=== PATIENT | male | born 1945 | race Caucasian/White ===

== ENCOUNTER 2018-04-07 13:36 | Outpatient (CLI) | payer MEDICARE, OTHER ==
--- NOTE | 2018-04-07 14:33 | XRAY Preliminary Report ---
Exam: XR WRIST 4 VIEW LT IMPRESSION: No acute fracture or subluxation. 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 [facility] SITE ID: [id number]
--- NOTE | 2018-04-07 14:33 | XRAY Report ---
EXAM: LEFT WRIST RADIOGRAPHY EXAM DATE: 04/07/2018 02:09 PM. CLINICAL HISTORY: CONTUSION LEFT WRIST. COMPARISON: None. TECHNIQUE: 3 views. FINDINGS: Bones: There is degenerative disease of the base of thumb with joint space narrowing sclerosis and lemus bchondral cystic disease around the first carpal metacarpal joint. Negative for fracture. Joints: No subluxation or dislocation. Soft Tissues: Normal. No soft tissue swelling. IMPRESSION: No acute fracture or subluxation. 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 [facility] Referring Provider Line: [phone] SITE ID: [id number]
== END 2018-04-07 13:37 | disposition home or self-care (01) ==
LOC: DI 13:36
PROVIDERS: ATTEND Family Medicine
DX: S60.212A Contusion of left wrist, initial encounter (principal); M19.032 Primary osteoarthritis, left wrist

== ENCOUNTER 2020-12-07 11:02 | Outpatient (CLI) | payer MEDICARE, OTHER ==
--- NOTE | 2020-12-07 21:41 | SLEEP CARE CONSULTATION ---
Information from patient questionnaire entered by Thania Bell. I have reviewed and concur with the information entered by Thania Bell. This document represents the service I personally performed and the decisions made by me, Jeiska Middleton MD, [facility]. History of Present Illness Service Date and Time: 12/07/2020 1102 Reason for Visit: New patient Chief Complaint: reports: Fatigue, Other (sore throat) Date of Onset: 6 month Usual bedtime: 10 pm Time it takes to fall asleep: 5 min Snores at night: Yes (sometimes) Observed to quit breathing while asleep: No Sleeps alone due to snoring: No Number of times waking at night: 2 Reasons for waking at night: reports: Bathroom Toss, Turn, or Twitch while sleeping: No Recalls having dreams: No Usually gets out of bed at: 6 am Feels refreshed in the morning: Yes Morning headache: No Sleepy or fatigued during the day: Yes Ever fallen asleep while driving: No Takes day naps: Yes Dreams during day naps: No Prior sleep studies: No Additional HPI information: I had the pleasure of seeing Mr. Manning along with his today regarding the possibility of him having a sleep disorder. As you know, he is a 74 year old gentleman who complains of sore throat and acid reflux at night. He has had the sore throat for about 6 months. Prior to quit drinking alcohol, he used to snore loudly and quit breathing in his sleep, according to his . He can recall waking up on the average of 2 times during the night. Most of the time he wakes up because of having to use the bathroom. There is not a lot of tossing and turning in his sleep. No somniloquy (sleep talking) or somnambulism (sleep walking). Generally there is no recollection of dreams. In the morning he usually gets up out of the bed around 6 a.m. feeling refreshed and rested. He usually does not have a morning headache. During the day he complains of feeling sleepy and fatigued. His score on [place] Sleepiness Scale is 10 out of 24. He never has fallen asleep while driving nor has had any accident due to sleepiness. He usually takes naps during the day. He reports having impaired concentration during the day. - Parasomnia Symptoms Ever been unable to move upon waking from sleep: No Ever felt weak in the knees when startled or emotional: No Bothered by creepy, crawly, restless sensations in legs: No Problems with memory or concentration: Yes Subjective Initial [place] Sleepiness Scale score: 10 (in 2020) Past Medical History Past Medical History: reports: Hypertension, Congestive Heart Failure, Diabetes, Arthritis, Coronary Heart Disease, GERD Social History The patient's occupation is a Retired. Patient is and lives in [place]. Have you smoked in the past 12 months: No Cigarettes per day (20/pack): 40 Years of smokin Quit date: 1990 Smoking Pack Years: 40.0 Alcohol use: Yes Alcohol amount and frequency: 2 drinks, not often Caffeine use: Yes Caffeine amount and frequency: 2 cups of coffee Family History Family history of sleep disordered breathing: No Allergies and Home Medications Drug allergies reviewed: Yes Home medication list reviewed: Yes Review of Systems Cardiovascular: reports: high blood pressure, irregular heart rate or pulse, leg or foot swelling Respiratory: reports: shortness of breath, wheeze Gastrointestinal: reports: heartburn, difficulty swallowing, diarrhea Urinary: denies: incontinence, frequency, urgency, impotence, other Neurological: denies: headaches, seizure, head trauma, disorientation, speech dysfunction, gait or balance problems, fainting or unconsciousness, other Psychiatric: denies: Attention Deficit Hyperactivity, anxiety, depression, mood disorder, claustrophobia, other Ear/Nose/Throat: reports: dry mouth/throat, hoarseness, wisdom teeth removed Endocrine: reports: sluggishness Musculoskeletal: reports: joint pain, neck pain, back pain, joint swelling, muscle pain or cramping Immunologic: reports: sneezing, itching Physical Exam Vital signs obtained and entered by: To minimize the risk of COVID-19 exposure, detailed exam was not performed. Height: 5 ft 10 in Weight: 210 lb Body Mass Index: 30.1 BMI Classification: Obese Impression and Plan IMPRESSION: 1. Obstructive Sleep Apnea-Hypopnea Syndrome, as suggested by history of loud and irregular snoring, frequent awakenings during the night, cognitive impairment, and daytime hypersomnolence. Narrow oropharynx and obesity are common predisposing factors for obstructive sleep apnea-hypopnea syndrome. Obstructive sleep apnea-hypopnea can also complicate his underlying cardiac diseases. Obstructive sleep apnea-hypopnea can also cause gastroesophageal reflux at night due to the increased negative pressure in the intrathoracic cavity. I recommend proceeding to polysomnography to confirm the diagnosis and to assess severity. If he has significant sleep disordered breathing, a manual CPAP titration study will also be performed to find the optimal treatment pressure. I informed the patient of what the sleep studies involve and after some discussion, he agreed to proceed. Plan: 1. Schedule polysomnography + manual CPAP titration study and return in 1 to 2 weeks after the study to discuss result and initiate therapy. 2. Avoid long distance driving or when feeling sleepy. 3. Avoid alcohol, sedative and muscle relaxant around bedtime. 4. Attempt to lose weight. Time Spent with Patient (minutes): 15
== END 2020-12-07 11:03 | disposition home or self-care (01) ==
LOC: SC 11:02
PROVIDERS: ATTEND Internal Medicine Pulmonary Disease
DX: G47.10 Hypersomnia, unspecified (principal); R41.89 Other symptoms and signs involving cognitive functions and awareness; G47.8 Other sleep disorders; R06.83 Snoring; E66.9 Obesity, unspecified; Z68.30 Body mass index [BMI] 30.0-30.9, adult
CPT/HCPCS: 99202; G0463; 99212

== ENCOUNTER 2021-05-28 14:00 | Outpatient (CLI) | payer MEDICARE, OTHER ==
--- NOTE | 2021-05-28 15:05 | XRAY Report ---
PROCEDURE: Chest 2 View X-Ray INDICATIONS: CHRONIC COUGH TECHNIQUE: 2 view(s) of the chest. COMPARISON: 09/28/2014. FINDINGS: Surgical changes and devices: Median sternotomy wires and surgical clips are seen.. Lungs and pleura: No pleural effusions or pneumothorax. Lungs are clear. Mediastinum: Mediastinal contours are normal. Heart size is normal. Bones and chest wall: No suspicious bony abnormalities. Soft tissues appear unremarkable. IMPRESSION: No acute cardiopulmonary pathology. Reviewed by: Oscar Beach MD on 05/28/2021 3:04 PM PDT Approved by: Oscar Beach MD on 05/28/2021 3:04 PM PDT Station ID: [id number]
== END 2021-05-28 14:01 | disposition home or self-care (01) ==
LOC: LAB 14:00 → DI 14:01
PROVIDERS: ATTEND Internal Medicine
DX: R05 Cough (principal)

== ENCOUNTER 2023-04-11 10:37 | Outpatient (CLI) | payer MEDICARE, OTHER ==
[2023-04-11] MEDS ORDERED: ALBUTEROL 1 PUFF INH STA (12:55)
== END 2023-04-11 10:38 | disposition home or self-care (01) ==
LOC: RT 10:37
PROVIDERS: ATTEND Internal Medicine
DX: R06.2 Wheezing (principal)
CPT/HCPCS: 94060; 94729

== ENCOUNTER 2023-05-25 07:16 | Day surgery (SDC) | payer MEDICARE, OTHER ==
[2023-05-25] MEDS ORDERED: LACTATED RINGERS 1,000 ML IV ONE ×2 (07:50→09:52)
--- NOTE | 2023-05-25 08:30 | ANESTHESIA ---
Pre-Anesthesia VS, & Labs - Diagnosis anemia - Procedure EGD, colonoscopy Vital Signs: Temp Pulse Resp BP Pulse Ox O2 Flow Rate 35.6 C L 85 20 166/74 H 95 05/25/23 07:20 05/25/23 07:20 05/25/23 07:20 05/25/23 07:20 05/25/23 07:20 Height: 5 ft 10 in Weight (kg): 94.6 kg Body Mass Index: 29.9 BMI Classification: Overweight - NPO >8 hours - Lab Results Current Lab Results: Laboratory Tests 05/25/23 07:44: POC Whole Bld Glucose 202 H Home Medications and Allergies Aspirin EC [Ecotrin] 81 mg PO DAILY 07/01/13 Lisinopril 20 mg PO BID 07/01/13 Omeprazole 40 mg PO DAILY 07/01/13 amLODIPine [Norvasc] 5 mg PO BID 07/01/13 metFORMIN [Glucophage] 1,000 mg PO BID 07/01/13 Rosuvastatin Calcium [Crestor] 20 mg PO DAILY 09/28/14 Clopidogrel [Plavix] 75 mg PO DAILY 03/14/23 Losartan [Cozaar] 50 mg PO DAILY 03/14/23 Metoprolol Succinate 50 mg PO DAILY 03/14/23 glipiZIDE [Glucotrol] 5 mg PO DAILY 03/14/23 Allergies/Adverse Reactions: Allergies Allergy/AdvReac Type Severity Reaction Status Date / Time Penicillins Allergy Unknown unknown Verified 07/01/13 04:55 ticagrelor [From Brilinta] Allergy Respiratory Verified 03/14/23 09:45 Anes History & Medical History - Anesthetic History Anesthesia Complications: reports: No previous complications Family history of Anesthesia Complications: Denies Family history of Malignant Hyperthermia: Denies - Medical History Cardiovascular: reports: Hypertension, High cholesterol, Coronary artery disease (Pacemaker), Angina, [place], Other (METS<4) Pulmonary: reports: Shortness of breath Gastrointestinal: reports: GERD, Ulcers Endocrine/Autoimmune: reports: Type 2 diabetes Skin: reports: None Smoking Status: Unknown if ever smoked Psychosocial: reports: Substance abuse, Alcohol (heavy ETOH) History of Cancer?: No - Surgical History General: reports: Colonoscopy Cardiothoracic: reports: CABG, Coronary stent, Pacemaker, AAA Orthopedic: Exam General: Alert, Oriented x3, Cooperative Dental: WNL Mouth Openin Fingerbreadth Mallampati classification: II Thyromental Distance: less than 4 cm Respiratory: Lungs clear Cardiovascular: Regular rate Plan Anesthesia Type: General, Total IV Consent for Procedure(s) Verified and Reviewed: Yes Code Status: Attempt Resuscitation ASA classification: 3-Severe systemic disease Is this case an emergency?: No
[2023-05-25] MEDS ORDERED: PROPOFOL 500 MG/50 ML 500 MG/50 ML VIAL ONE (08:35)
[2023-05-25] MEDS ORDERED: PROPOFOL 200 MG/20 ML VIAL IVP ONE (09:26)
[2023-05-25 10:39] VITALS: BP 154/83
--- NOTE | 2023-05-25 10:48 | ANESTHESIA POST OP EVALUATION ---
Anesthesia Post Eval - Post Anesthesia Eval Vitals: Last Vital Signs Temp 36.0 C L 05/25/23 10:00 Pulse 80 05/25/23 10:30 Resp 16 05/25/23 10:30 BP 154/83 H 05/25/23 10:30 Pulse Ox 92 05/25/23 10:30 O2 Flow Rate CV Function Including HR & BP: Stable Pain Control: Satisfactory Nausea & Vomiting: Negative Mental Status: Baseline Respiratory Status: Airway Patent Hydration Status: Satisfactory Anesthesia Complications: None
== END 2023-05-25 07:17 | disposition home or self-care (01) ==
LOC: SDS 07:16
PROVIDERS: ATTEND Surgery
PROC: 0DBH8ZX Excision of Cecum, Via Natural or Artificial Opening Endoscopic, Diagnostic (ICD-10-PCS; 2023-05-25)
PROC: 0DBL8ZZ Excision of Transverse Colon, Via Natural or Artificial Opening Endoscopic (ICD-10-PCS; 2023-05-25)
PROC: 0DBN8ZZ Excision of Sigmoid Colon, Via Natural or Artificial Opening Endoscopic (ICD-10-PCS; 2023-05-25)
PROC: 0DB58ZX Excision of Esophagus, Via Natural or Artificial Opening Endoscopic, Diagnostic (ICD-10-PCS; principal; 2023-05-25 08:30)
PROC: 0DB68ZX Excision of Stomach, Via Natural or Artificial Opening Endoscopic, Diagnostic (ICD-10-PCS; 2023-05-25 08:30)
DX: Z12.11 Encounter for screening for malignant neoplasm of colon (principal); D12.3 Benign neoplasm of transverse colon; D12.5 Benign neoplasm of sigmoid colon; K63.89 Other specified diseases of intestine; K31.7 Polyp of stomach and duodenum; K21.9 Gastro-esophageal reflux disease without esophagitis; R10.13 Epigastric pain; E11.9 Type 2 diabetes mellitus without complications; Z79.84 Long term (current) use of oral hypoglycemic drugs; Z95.0 Presence of cardiac pacemaker; Z95.1 Presence of aortocoronary bypass graft; I25.2 Old myocardial infarction; I10 Essential (primary) hypertension
CPT/HCPCS: 43239; 45380; 45385; J7120

== ENCOUNTER → 2023-06-22 | Outpatient (CLI) | payer MEDICARE, OTHER | LOC: LAB 08:00 | PROVIDERS: ATTEND Internal Medicine | DX: R94.2 Abnormal results of pulmonary function studies (principal) ==

== ENCOUNTER 2023-06-28 11:49 | Outpatient (CLI) | payer MEDICARE, OTHER ==
[2023-06-28] MEDS ORDERED: iohexoL-300 100 ML VIAL IVP ONE (15:23)
--- NOTE | 2023-06-29 16:58 | CT Report ---
PROCEDURE: CHEST W INDICATIONS: ABNORMAL RESULTS OF PULMONARY FUNCTION STUDIES CONTRAST: 100mL Omni 300 TECHNIQUE: After the administration of intravenous contrast, 1 mm axial images were acquired from the pulmonary apices through the posterior costophrenic angles. Axial 5 mm soft tissue kernel reconstructions were performed as well as 8 mm axial MIP and coronal and sagittal 5 mm reformations. For radiation dose reduction, the following was used: automated exposure control, adjustment of mA and/or kV according to patient size. COMPARISON: None. FINDINGS: Image quality: Excellent. Lungs and pleura: Peripheral groundglass and consolidation in the left upper lobe (series 3, image 67 ). 1.2 cm consolidative nodularity in the right upper lobe (series 3, image 145). Diffuse bronchial t hickening. No pleural effusions. No pneumothorax. No suspicious pulmonary nodules which require foll ow up. Mediastinum: Heart size is normal. No pericardial effusion. No large vessel abnormality. No mediastin al adenopathy by size criteria. Sternotomy. Three-vessel coronary calcifications. Chest wall and lower neck: Thyroid is unremarkable. No axillary or supraclavicular adenopathy by size . Left chest wall pacemaker generator. Bones: No aggressive osseous abnormality. Upper Abdomen: Incompletely visualized 3.0 cm hypoattenuating lesion in segment 5/6 of the liver (ser ies 2, image 59). Subcentimeter flash filling lesion in segment 2, presumably a tiny hemangioma in th e absence of malignancy. IMPRESSION: A small amount of consolidation within the left upper lobe and a consolidative nodules within the rig ht upper lobe. Findings favor a resolving infectious or inflammatory process. Recommend follow-up in 2-3 months with noncontrast chest CT to ensure resolution. Incompletely visualized hypoattenuating lesion in segment 5/6 of the liver. Recommend evaluation with ultrasound. Reviewed by: Sixto Gómez on 06/29/2023 4:56 PM PDT Approved by: Sixto Gómez on 06/29/2023 4:56 PM PDT Station ID: [id number]
== END 2023-06-28 11:50 | disposition home or self-care (01) ==
LOC: DI 11:49
PROVIDERS: ATTEND Internal Medicine
DX: R94.2 Abnormal results of pulmonary function studies (principal); R91.8 Other nonspecific abnormal finding of lung field
CPT/HCPCS: 71260; Q9967

== ENCOUNTER 2023-07-18 14:37 | Outpatient (CLI) | payer MEDICARE, OTHER | END 2023-07-18 14:38 | disposition home or self-care (01) | LOC: RT 14:37 | PROVIDERS: ATTEND Internal Medicine | DX: R94.2 Abnormal results of pulmonary function studies (principal); R06.00 Dyspnea, unspecified ==

== ENCOUNTER 2023-07-26 10:37 | Outpatient (CLI) | payer MEDICARE, OTHER ==
--- NOTE | 2023-07-26 11:45 | Sleep Patient Instructions ---
Sleep Center Visit Summary - Patient Visit Information Reason for Visit: Follow up with Sleep Care - Patient Instructions Instructions Attached: Sleep Study, Sleep Clinic Visit, Sleep Study Home Monitor Additional Instructions: You will be completing a sleep study, either an in-lab polysomnography (PSG) or home sleep study (HST). You will follow-up in the sleep care office after the sleep study is completed to hear the results and talk about therapy, if needed. You will be called by our office staff to schedule this appointment, but you may contact us with any questions. - Clinic Information Contact: [facility] [address] [place] [address] [email or web address] T: [phone]
--- NOTE | 2023-07-26 11:46 | SLEEP CARE CONSULTATION ---
Information from patient questionnaire entered by Mica Pop. I have reviewed and concur with the information entered by Mica Pop. This document represents the service I personally performed and the decisions made by me, Danni Quach ARNP. History of Present Illness Service Date and Time: 07/26/2023 1037 Reason for follow up: other (REORDER SLEEP STUDY) Accompanied by: Spouse (Radha) HPI additional information: I had the pleasure of seeing HILL GRIFFITH today regarding the possibility of him having a sleep disorder. He was last seen in 11/2020 but the sleep study was not completed. His current complaints are fatigue and snoring. He is getting iron infusions and B12 shots due to a internal bleed that is unknown. He had a heart cath in 2021 and has a pacemaker. He has been having trouble with breathing and he is currently being evaluated by many doctors to find out cause. The patient tells me that he normally goes to bed around 10 pm, and it takes him approximately 1.5 minutes to fall asleep. He has been told that he snores loudly and irregularly at night. He has been observed to stop breathing in his sleep. His bed partner can still sleep in the same bed. He can recall waking up on the average of 1 times during the night. Most of the time he wakes up because of bathroom. He has occasionally awakened having to gasp for air right now. There is not a lot of tossing and turning in his sleep. Generally he can recall having dreams. He usually wakes up at [id number] and feels refreshed. He usually does not have a morning headache. During the day he complains of feeling sleepy and fatigued. He has never fallen asleep while driving nor has any accident due to sleepiness. He usually naps for about 15-20 minutes during the day or sometimes for longer. If he naps, upon falling asleep during the day he denies having vivid dreams. There is no somniloquy (sleep talking) or somnambulism (sleep walking). He has never experienced sleep paralysis, cataplexy, or symptoms of restless leg syndrome. He denies having impaired concentration during the day. Subjective Initial [place] Sleepiness Scale score: 10 (2020) Current [place] Sleepiness Scale score: 13 (07/26/23) Allergies and Home Medications Known drug allergies: Yes (as listed) Drug allergies reviewed: Yes Home medication list reviewed: Yes Allergy and home medication list: Allergies Penicillins Allergy (Unknown, Verified 07/25/23 12:08) unknown ticagrelor [From Brilinta] Allergy (Verified 07/25/23 12:08) Respiratory Review of Systems Review of systems same as previous: No (anemia; heart cath 2-3 in last couple years ) Physical Exam Vital signs obtained and entered by: MICA Keane MA Blood Pressure: 160/98 (LEFT ARM) Cuff size: regular Heart Rate: 90 O2 Saturation: 93 Height: 5 ft 10 in Weight: 214 lb 9.6 oz Body Mass Index: 30.7 BMI Classification: Obese Impression and Plan 1. Suspected Obstructive Sleep Apnea-Hypopnea Syndrome, as suggested by a his tory of loud and irregular snoring, and excessive daytime sleepiness. [] Narrow oropharynx and obesity are common predisposing factors for obstructive sleep apnea-hypopnea syndrome. I recommend proceeding to polysomnography to confirm the diagnosis and to assess severity. If the patient has significant sleep disordered breathing, a manual CPAP titration study will also be performed to find the optimal treatment pressure. I informed the patient of what the sleep studies involve and after some discussion, obtained agreement to proceed. The pathophysiology of obstructive sleep apnea-hypopnea syndrome was discussed with the patient and health risks of cardiovascular and cerebrovascular disease if not treated. Risks of drowsy driving discussed in detail and patient advised to avoid long distance driving and to machine assembler for puller over at the first sign of drowsiness. Patient agreed to plan. 2. Obesity, unspecified. Currently patients BMI is 30.7. Obesity increases the risk of apnea, CPAP pressure requirements and overall health risks especially cardiovascular and diabetes. Thus patient is advised to lose weight. * Schedule polysomnography. * Avoid long distance driving or driving when feeling sleepy. * Avoid alcohol, sedative and muscle relaxant around bedtime. * Attempt to lose weight. * Review instructions provided by trained office staff on how to prepare for the sleep study. * Return for follow-up after sleep study completed. Counseling Topics: Weight loss health impact Visit Type: In Office Time Spent with Patient (minutes): 25 Provider Statement: I spent 100% of the Face to Face Visit with the patient with greater than 50% spent counseling the patient and coordination of care.
[2023-07-26 11:54] VITALS: BP 160/98; O2SAT 93
== END 2023-07-26 10:38 | disposition home or self-care (01) ==
LOC: SC 10:37
PROVIDERS: ATTEND Nurse Practitioner Family
DX: R53.83 Other fatigue (principal); R06.83 Snoring; I11.9 Hypertensive heart disease without heart failure; E11.9 Type 2 diabetes mellitus without complications; E66.9 Obesity, unspecified; Z68.30 Body mass index [BMI] 30.0-30.9, adult
CPT/HCPCS: 99213; G0463; 99212

== ENCOUNTER 2023-07-28 06:45 | Outpatient (CLI) | payer MEDICARE, OTHER ==
--- NOTE | 2023-07-28 14:38 | Ultrasound Report ---
PROCEDURE: Abdomen Limited INDICATIONS: ABNORMAL RESULTS OF LIVER FUNCTION STUDIES TECHNIQUE: Real-time focused scanning was performed of the abdomen, with image documentation. COMPARISONS: None. FINDINGS: Liver: Increased liver echogenicity, commonly mild hepatic steatosis. Hyperattenuating lesion in the right hepatic lobe measuring 3.2 x 3.7 x 2.9 cm. Additional lesion with similar imaging characterist ics in the left anterior lobe measuring 1.6 x 1.5 x 1.5 cm. Additional cyst with mildly thickened int ernal septation measuring 1 cm. Gallbladder: Unremarkable. Biliary ducts: Intrahepatic bile ducts are non-dilated. Extrahepatic bile duct caliber measures 3 m m. Normal is 6-7 mm or less in diameter, or 10 mm or less post-cholecystectomy. Pancreas: Visualized portions of the pancreas are sonographically normal. Right kidney: Normal in size and echotexture. Right kidney measures 12.2 cm long. No hydronephrosis or nephrolithiasis. No solid masses. No complex renal cystic lesions which require follow-up. IVC: Intrahepatic inferior vena cava is patent. Miscellaneous: No free abdominal fluid. IMPRESSION: A couple of hyperattenuating hepatic cystic lesions measuring 3.2 cm and 1.6 cm. These do not have th e typical imaging features of a benign hemangioma. Recommend further characterization with MRI or CT (liver mass protocol). Reviewed by: Sixto Gómez on 07/28/2023 2:37 PM PDT Approved by: Sixto Gómez on 07/28/2023 2:37 PM PDT Station ID: [id number]
== END 2023-07-28 06:46 | disposition home or self-care (01) ==
LOC: DI 06:45
PROVIDERS: ATTEND Internal Medicine
DX: R94.5 Abnormal results of liver function studies (principal); K76.89 Other specified diseases of liver

== ENCOUNTER 2023-08-14 08:34 | Emergency (ER) | payer MEDICARE, OTHER ==
[2023-08-14 08:49] VITALS: O2SAT 94
[2023-08-14 09:03] LABS: BASOPHILS # (AUTO) 0.1 10^3/uL (0.0-0.1); EOSINOPHILS # (AUTO) 0.1 10^3/uL (0.0-0.7); EOSINOPHILS % (AUTO) 0.9 %; HCT - HEMATOCRIT 49.6 % (42.0-52.0); HGB - HEMOGLOBIN 16.1 g/dL (14.0-18.0); LYMPHOCYTES # (AUTO) 1.8 10^3/uL (1.5-3.5); LYMPHOCYTES % (AUTO) 19.7 %; MEAN CORPUSCULAR HGB CONC 32.5 g/dL (32.0-36.0); MEAN CORPUSCULAR VOLUME 92.4 fL (80.0-94.0); MONOCYTES # (AUTO) 0.7 10^3/uL (0.0-1.0); MONOCYTES % (AUTO) 7.8 %; NEUTROPHILS # (AUTO) 6.5 10^3/uL (1.5-6.6); NEUTROPHILS % (AUTO) 70.3 %; PLT - PLATELET COUNT 179 10^3/uL (130-450); RED BLOOD COUNT 5.37 10^6/uL (4.70-6.10); RED CELL DISTRIBUTION WIDTH 14.8 % (12.0-15.0); WHITE BLOOD COUNT 9.2 x10^3/uL (4.8-10.8)
[2023-08-14 09:25] LABS: ALBUMIN 4.5 g/dL (3.2-5.5); ALBUMIN/GLOBULIN RATIO 1.4 (1.0-2.2); CALCIUM 9.9 mg/dL (8.5-10.3); CREATININE 0.7 mg/dL (0.6-1.3); POTASSIUM 4.8 mmol/L (3.5-4.5); TOTAL PROTEIN 7.7 g/dL (6.4-8.9)
[2023-08-14 09:57] LABS: BILIRUBIN,URINE NEGATIVE (NEGATIVE); GLUCOSE, URINE (UA) NEGATIVE (NEGATIVE); KETONES,URINE (UA) NEGATIVE (NEGATIVE); LEUKOCYTE ESTERASE, URINE NEGATIVE (NEGATIVE); NITRITE,URINE NEGATIVE (NEGATIVE); OCCULT BLOOD,URINE NEGATIVE (NEGATIVE); PROTEIN,URINE 100 mg/dL (NEGATIVE); UROBILINOGEN,URINE 0.2 (NORMAL) E.U./dL (NORMAL)
[2023-08-14 10:02] LABS: CLARITY,URINE CLEAR (CLEAR)
[2023-08-14 10:03] LABS: BACTERIA,URINE None Seen /HPF (None Seen); RBC,URINE 0-5 /HPF (0-5); SQUAMOUS EPITHELIAL CELL,UR FEW Squamous (<= Few); WBC,URINE 0-3 /HPF (0-3)
[2023-08-14] MEDS: HYDROmorphone 1 MG/ML CARPUJECT IVP STA ×2 (10:21→12:21)
[2023-08-14] MEDS: SODIUM CHLORIDE 0.9% 1,000 ML IV STA (12:21)
--- NOTE | 2023-08-14 12:36 | ED Physician Documentation ---
PD HPI ABD PAIN - Stated complaint Stated Complaint: ABD PX - Chief complaint Chief Complaint: Abd Pain - History obtained from History obtained from: Patient, Family - Additional information Additional information: The patient comes to the emergency department chief complaint of abdominal pain for the last 2 years, but worse over the last couple of days. He states that it feels the same quality as his prior episodes, but more intense. He describes the pain as radiating across both sides of his low abdomen and into his suprapubic area. He denies any changes in his bowel movements or any dysuria. No blood in his stool or urine. The patient denies any nausea or vomiting. No fevers or chills. The patient has a residence manager for chronic anemia that as yet has been idiopathic. He has had CT of the abdomen pelvis as well as colonoscopy and endoscopy and as yet, no reason for his abdominal pain has been found. He is scheduled to get a [facility] down in [place] as his residence manager suspects he may have a bleed somewhere in his distal small intestine. Patient denies further complaints at this time. PD PAST MEDICAL HISTORY - Past Medical History Cardiovascular: Hypertension, High cholesterol, Coronary artery disease (Pacemaker), Angina, [place], Other (METS<4) Respiratory: Shortness of breath Endocrine/Autoimmune: Type 2 diabetes GI: GERD, Ulcers HEENT: None Derm: None - Past Surgical History Past Surgical History: Yes Cardiovascular: Coronary stent - Present Medications Home Medications: Ambulatory Orders Medication Instructions Recorded Confirmed Aspirin EC [Ecotrin] 81 mg PO DAILY 07/01/13 08/03/23 Lisinopril 20 mg PO BID 07/01/13 08/03/23 Omeprazole 40 mg PO DAILY 07/01/13 08/03/23 amLODIPine [Norvasc] 5 mg PO BID 07/01/13 08/03/23 metFORMIN [Glucophage] 1,000 mg PO BID 07/01/13 08/03/23 Rosuvastatin Calcium [Crestor] 20 mg PO DAILY 09/28/14 08/03/23 Clopidogrel [Plavix] 75 mg PO DAILY 03/14/23 08/03/23 Losartan [Cozaar] 50 mg PO DAILY 03/14/23 08/03/23 Metoprolol Succinate 50 mg PO DAILY 03/14/23 08/03/23 glipiZIDE [Glucotrol] 5 mg PO DAILY 03/14/23 08/03/23 Clopidogrel [Plavix] See Rx Instructions .ROUTE .COMPLEX 07/26/23 08/03/23 Rosuvastatin Calcium See Rx Instructions .ROUTE .COMPLEX 07/26/23 08/03/23 Docusate Sodium 250Mg Capsule 250 mg PO DAILY #20 cap 08/14/23 [Colace 250Mg Capsule] HYDROcod/ACETAM 5/325 [[place] 5/325] 1 - 2 tablet PO Q6H PRN #30 tablet 08/14/23 - Allergies Allergies/Adverse Reactions: Allergies Allergy/AdvReac Type Severity Reaction Status Date / Time Penicillins Allergy Unknown unknown Verified 08/14/23 08:41 ticagrelor [From Brilinta] Allergy Respiratory Verified 08/14/23 08:41 - Social History Does the pt smoke?: No Smoking Status: Unknown if ever smoked Does the pt drink ETOH?: Yes Does the pt have substance abuse?: No - Immunizations Immunizations are current?: Yes - POLST Patient has POLST: No PD ED PE NORMAL - Vitals Vital signs reviewed: Yes - General General: Alert and oriented X 3, No acute distress, Well developed/nourished - HEENT HEENT: Atraumatic, PERRL, EOMI, Moist mucous membranes - Neck Neck: Supple, no meningeal sign - Cardiac Cardiac: RRR, No murmur, Strong equal pulses - Respiratory Respiratory: No respiratory distress, Clear bilaterally - Abdomen Abdomen: Soft, Other (Distended, soft, diffuse moderate tenderness without rebound or guarding.) - Derm Derm: Normal color, Warm and dry, No rash - Extremities Extremities: No deformity - Neuro Neuro: Alert and oriented X 3 - Psych Psych: Normal mood, Normal affect Results - Vitals Vitals: Oxygen O2 Source Nasal cannula - Labs Labs: Laboratory Tests 08/14/23 08/14/23 08/14/23 08:57 08:57 09:16 WBC 9.2 RBC 5.37 Hgb 16.1 Hct 49.6 MCV 92.4 MCH 30.0 MCHC 32.5 RDW 14.8 Plt Count 179 MPV 9.0 Neut # (Auto) 6.5 Lymph # (Auto) 1.8 [place] # (Auto) 0.7 Eos # (Auto) 0.1 Baso # (Auto) 0.1 Absolute Nucleated RBC 0.00 Nucleated RBC % 0.0 Sodium 135 Potassium 4.8 H Chloride 98 L Carbon Dioxide 29 Anion Gap 8.0 BUN 15 Creatinine 0.7 Estimated GFR (MDRD) 110 Glucose 169 H Calcium 9.9 Total Bilirubin 1.0 AST 16 ALT 23 Alkaline Phosphatase 62 Total Protein 7.7 Albumin 4.5 Globulin 3.2 Albumin/Globulin Ratio 1.4 Lipase 24 Urine Color YELLOW Urine Clarity CLEAR Urine pH 6.0 Ur Specific [place] 1.020 Urine Protein 100 H Urine Glucose (UA) NEGATIVE Urine Ketones NEGATIVE Urine Occult Blood NEGATIVE Urine Nitrite NEGATIVE Urine Bilirubin NEGATIVE Urine Urobilinogen 0.2 (NORMAL) Ur Leukocyte Esterase NEGATIVE Urine RBC 0-5 Urine WBC 0-3 Ur Squamous Epith Cells FEW Squamous Urine Bacteria None Seen Ur Microscopic Review INDICATED Urine Culture Comments NOT INDICATED - Rads (name of study) CT scan of the abdomen and pelvis Relevant Findings:: Final report received, See rad report (Liver markings; no low abdominal or pelvicfindings) PD Medical Decision Making - ED course Complexity details: reviewed results, re-evaluated patient, considered differential, d/w patient ED course: The patient was treated symptomatically with IV fluids and Dilaudid, and worked up with labs and ultimately, CT scan of the abdomen and pelvis. Laboratory studies were unremarkable and CT scan of the abdomen and pelvis showed some markings in the liver, of which the patient and his were already aware from previous studies, but no other abnormal findings or explanation for the patient's low abdominal symptoms. The patient was deemed stable for discharge home. I do not have an explanation for his lower abdominal pain which has been going on intermittently for 2 years now. The patient has already seen multiple specialist and at this point, I discussed with him and his that he is going to have to continue working with his specialist to get to the bottom of his ongoing pain. I will prescribe him medication for pain and stool softening. We have discussed usual indications for return. Departure - Departure Disposition: 01 Home, Self Care Clinical Impression: Abdominal pain Qualifiers: Abdominal location: lower abdomen, unspecified Qualified Code(s): R10.30 - Lo wer abdominal pain, unspecified Condition: Stable Instructions: ED Abdominal Pain Unkn Cause Male Follow-Up: Jyoti Jiménez MD [Provider Admit Priv/Credential] - nAdrew Jasso MD [Provider Admit Priv/Credential] - Eric Bermeo MD [Primary Care Provider] - Prescriptions: Docusate Sodium 250Mg Capsule [Colace 250Mg Capsule] 250 mg PO DAILY #20 cap HYDROcod/ACETAM 5/325 [[place] 5/325] 1 - 2 tablet PO Q6H PRN #30 tablet PRN Reason: Pain Comments: At this point in time, we do not have a good explanation as to why your chronic lower abdominal pain is worse. Your labs look good and your CT scan does not show any pathology in your lower abdomen or pelvis. You do continue to have findings in your liver, which have already been visualized before. At this point in time, you will need to continue to work with your primary doctor, surgeon, and crew caller to try to get to the bottom of your symptoms. A prescription for pain medication has been electronically transmitted to the [facility] pharmacy in [place]. It is important that you take the stool softener along with this, as the pain medication can be constipating and constipation will add to your discomfort. Forms: PCP List Discharge Date/Time: 08/14/23 15:46
[2023-08-14] MEDS: iohexoL-300 100 ML VIAL IVP ONE (13:47)
--- NOTE | 2023-08-14 14:30 | CT Report ---
PROCEDURE: ABDOMEN/PELVIS W INDICATIONS: low abd pain CONTRAST: 100mL Omni 300 TECHNIQUE: After the administration of intravenous contrast, 5 mm thick sections acquired from the diaphragms to the symphysis. 5 mm thick coronal and sagittal reformats were acquired. For radiation dose reducti on, the following was used: automated exposure control, adjustment of mA and/or kV according to smitha ent size. COMPARISON: None FINDINGS: Image quality: Excellent. Lung bases and heart: Bibasilar subsegmental atelectasis. Pacemaker wires are partially visualized. Liver: There is a heterogeneous hypoattenuating lesion within segment 6 posteriorly measuring 4.0 x 3 .0 cm. Additional subcentimeter hypodensities within the left hepatic lobe which are too small to lyric quately characterize. Hepatic steatosis. Gallbladder and biliary tree: No radiopaque stones or wall thickening. No biliary dilation. Spleen: No splenomegaly. Pancreas: No pancreatic ductal dilation. Adrenals: No adrenal nodule. Kidneys and ureters: No hydronephrosis. No renal cystic lesion which requires follow up. No solid mas s. Left renal simple cyst. Bowel and peritoneum: No bowel distension. No pathologic free fluid. Lymph nodes: No central or retroperitoneal adenopathy. Vessels: No infrarenal aortic aneurysm. Atherosclerotic vascular calcifications. PELVIS Reproductive organs: Unremarkable. Bladder: No abnormal wall thickening, accounting for underdistension. Pelvic lymph nodes: No pelvic adenopathy by size criteria. Bones: No aggressive osseous abnormality. Degenerative changes of the spine. Other: No significant ventral or inguinal hernia. IMPRESSION: 1.Heterogeneous hypoattenuating lesion within hepatic segment 6 posteriorly measuring 4.0 x 3.0 cm. D ifferential includes both benign and malignant etiologies include a meningioma, metastases and infect ion. Recommend clinical correlation with signs and symptoms of infection. Nonemergent multiphase live r protocol CT or MRI may be of value. 2.There are 2 additional subcentimeter hypodensities in the left hepatic lobe which are too small to accurately characterize and may represent simple cysts. 3.No evidence of primary malignancy. 4.Hepatic steatosis. Reviewed by: Christiano Johnson MD on 08/14/2023 2:28 PM PDT Approved by: Christiano Johnson MD on 08/14/2023 2:28 PM PDT Station ID: [id number]
[2023-08-14 14:31] VITALS: BP 172/92
== END 2023-08-14 15:46 | disposition home or self-care (01) ==
LOC: ED 08:34
DX: R10.31 Right lower quadrant pain (principal); R10.32 Left lower quadrant pain; I10 Essential (primary) hypertension; E78.00 Pure hypercholesterolemia, unspecified; I25.10 Atherosclerotic heart disease of native coronary artery without angina pectoris; E11.9 Type 2 diabetes mellitus without complications; Z79.82 Long term (current) use of aspirin; Z79.84 Long term (current) use of oral hypoglycemic drugs; Z79.02 Long term (current) use of antithrombotics/antiplatelets; Z79.899 Other long term (current) drug therapy
CPT/HCPCS: 36415; 80053; 81001; 81003; 83690; 85025; 87086; 96374; 96376; 99283

== ENCOUNTER 2023-09-01 10:54 | Outpatient (CLI) | payer MEDICARE, OTHER ==
[2023-09-01 11:14] LABS: CREATININE 0.7 mg/dL (0.6-1.3)
== END 2023-09-01 10:55 | disposition home or self-care (01) ==
LOC: LAB 10:54
PROVIDERS: ATTEND Internal Medicine
DX: R93.5 Abnormal findings on diagnostic imaging of other abdominal regions, including retroperitoneum (principal); K76.89 Other specified diseases of liver
CPT/HCPCS: 36415; 82565

== ENCOUNTER 2023-09-05 10:35 | Outpatient (CLI) | payer MEDICARE, OTHER ==
--- NOTE | 2023-09-05 13:56 | CT Report ---
PROCEDURE: ABDOMEN W/WO INDICATIONS: HEPATOMEGALY CONTRAST: Omni 300 100ml TECHNIQUE: 4 phase scanning was performed. After the administration of intravenous contrast, 5 mm thick section s acquired from the diaphragm to the symphysis. 5 mm coronal and sagittal reformats were acquired. For radiation dose reduction, the following was used: automated exposure control, adjustment of mA a nd/or kV according to patient size. COMPARISON: CT abdomen pelvis 08/15/2023. Abdominal ultrasound 07/28/2023. CT chest with contrast 06/28. FINDINGS: Image quality: Excellent. OTHER: Lung bases and heart: Pacemaker leads. Postmedian sternotomy. Liver: Rounded heterogeneous hypodense enhancing lesion in the inferior right lobe of the liver measuring 3. 4 x 3 cm, (7/23). No arterial hyperenhancement. No washout. No subcapsular retraction. Similar-appearing hypodense enhancing lesion at the most inferior right lobe of the liver measuring 1 .3 x 1.1 cm, (7/36), more conspicuous. 2 hypodense foci in the left lobe of liver, unchanged. No new foci identified. Probable mild hepatic steatosis. Gallbladder and biliary tree: No radiopaque stones or wall thickening. No biliary dilation. Spleen: No splenomegaly. Pancreas: No pancreatic ductal dilation. Adrenals: No adrenal nodule. Kidneys and ureters: No hydronephrosis. No kidney stones. No renal cystic lesion which requires follo w up. No solid mass. Bowel and peritoneum: No bowel distension. No pathologic free fluid. Partially visualized appendix is not dilated. Lymph nodes: No central or retroperitoneal adenopathy. Vessels: No infrarenal aortic aneurysm. Circumferential calcified metastatic plaque. Bones: No aggressive osseous abnormality. Other: No significant ventral hernia. IMPRESSION: 1. Hypodense enhancing lesions in the right lobe of the liver measuring 3.4 cm and 1.3 cm. Indetermin ate. HCC or metastatic disease could have this appearance. Recommend further characterization with l iver MRI. Alternatively, ultrasound-guided could be performed. 2. Additional hypodense foci in the left lobe liver. Given their conspicuity and small size favor clovis ign cysts. Reviewed by: Amanuel Parmar MD on 09/05/2023 1:55 PM PDT Approved by: Amanuel Parmar MD on 09/05/2023 1:55 PM PDT Station ID: [id number]
[2023-09-06] MEDS ORDERED: iohexoL-300 100 ML VIAL IVP ONE (04:41)
== END 2023-09-05 23:59 | disposition home or self-care (01) ==
LOC: DI 10:35
PROVIDERS: ATTEND Internal Medicine
DX: R16.0 Hepatomegaly, not elsewhere classified (principal)

== ENCOUNTER 2023-11-21 14:17 | Outpatient (CLI) | payer MEDICARE, OTHER ==
--- NOTE | 2023-11-21 16:57 | CT Report ---
PROCEDURE: Chest WO INDICATIONS: ABNORMAL RESULTS OF PULMONARY FUNCTION STUDIES TECHNIQUE: A CT scan of the chest was performed. Intravenous contrast media was not administered. Images were re corded and evaluated at appropriate window settings. Reformats: axial MIP of the chest, coronal and s agittal. For radiation dose reduction, the following was used: automated exposure control, adjustment of mA and/or kV according to patient size. COMPARISON: None. FINDINGS: Image quality: Excellent. Lungs and pleura: No consolidation. No pleural effusions. No pneumothorax. No suspicious pulmonary n odules which require follow up. Mild centrilobular emphysema. Mediastinum: Heart size is enlarged. No pericardial effusion. No large vessel abnormality. No mediast inal adenopathy by size criteria. Numerous nonenlarged mediastinal lymph nodes, which are nonspecifi c. Prior CABG. Chest wall and lower neck: Thyroid is unremarkable. No axillary or supraclavicular adenopathy by size . Left chest wall generator with cardiac leads. Bones: No aggressive osseous abnormality. Upper Abdomen: Hepatic cysts. Cholelithiasis. IMPRESSION: Mild centrilobular emphysema. No evidence of interstitial lung disease. Reviewed by: Sixto Gómez MD on 11/21/2023 4:56 PM PST Approved by: Sixto Gómez MD on 11/21/2023 4:56 PM PST Station ID: [id number]
== END 2023-11-21 14:18 | disposition home or self-care (01) ==
LOC: DI 14:17
PROVIDERS: ATTEND Internal Medicine
DX: R94.2 Abnormal results of pulmonary function studies (principal); J43.2 Centrilobular emphysema

== ENCOUNTER 2024-07-09 13:26 | Outpatient (CLI) | payer MEDICARE, OTHER | END 2024-07-09 13:27 | disposition home or self-care (01) | LOC: LAB 13:26 | PROVIDERS: ATTEND Internal Medicine Hematology & Oncology | DX: Z53.9 Procedure and treatment not carried out, unspecified reason (principal) ==